=== PATIENT | male | born 1960 | race Caucasian/White ===

== ENCOUNTER → 2021-04-04 09:56 | Outpatient (CLI) | payer OTHER, SELFPAY ==
--- NOTE | ~2021-04-04 | XR_ITS ---
EXAMINATION: XR hip RT min 2V DATE: 04/04/2021 10:06 INDICATION: Right hip pain. TECHNIQUE: 2 views of right hip were obtained. COMPARISON: None. FINDINGS: Bone alignment is normal. No fracture. There is mild right hip osteoarthritis. IMPRESSION: 1. Mild right hip osteoarthritis. Reviewed, dictated and finalized at location A.
== END ==
PROVIDERS: PCP Emergency Medicine; Visit Provider Emergency Medicine
DX: M25.559 Pain in unspecified hip (principal); M16.11 Unilateral primary osteoarthritis, right hip
CPT/HCPCS: 73502

== ENCOUNTER 2021-12-29 08:23 | Emergency (ER) | payer OTHER, SELFPAY ==
[2021-12-29 08:32] VITALS: BP 130/91; PULSE 78; RESP 16; TEMP 37.1; O2SAT 98
--- NOTE | 2021-12-29 08:32 | ED.URI ---
HPI - URI/Sore Throat General Chief Complaint: Upper Respiratory Infection Stated Complaint: requests covid test Time Seen by Provider: 12/29/21 08:32 Source: patient Mode of arrival: ambulatory Limitations: no limitations History of Present Illness HPI Narrative: 61-year-old male presents with complaint of congestion, headaches, body aches, fatigue for 3 days. States that this morning he took a home COVID test but had difficulty swabbing himself so is concerned that it was an accurate. States that COVID test was negative. Has a event tonight and wants another rapid COVID test to make sure that he is not sick. Denies chest pain and shortness of breath. No nausea vomiting diarrhea. Patient is well-appearing. All systems reviewed and negative except as noted above. Related Data Allergies Allergy/AdvReac Type Severity Reaction Status Date / Time No Known Allergies Allergy Verified 04/04/21 09:32 Review of Systems Review of Systems: CONSTITUTIONAL: Denies fever, chills, or sweats. Reports fatigue. EYES: Denies visual changes, redness, or discharge. ENT: Reports rhinorrhea, congestion, sore throat. Denies otalgia. CARDIOVASCULAR: Denies chest pain, palpitations, or edema. RESPIRATORY: Denies cough or dyspnea. GASTROINTESTINAL: Denies abdominal pain, nausea, vomiting, or diarrhea. GENITOURINARY: Denies dysuria or hematuria. SKIN: Denies rash or itching. MUSCULOSKELETAL: Denies back pain, joint pain. Reports myalgia. NEUROLOGIC: Denies headache, numbness, or weakness. PSYCHIATRIC: Denies anxiety or depression. All other systems reviewed are negative, except as documented in HPI. [facility] Past Medical History Medical History (Updated 12/29/21 @ 08:58 by Hanh Ray NP) HTN (hypertension) Family History Family History Father Family history of cardiovascular disease, Onset Age: 50 Social History Social History Smoking status: Never smoker Alcohol intake: never Exam Narrative: GENERAL: This is a well-nourished, well-developed patient, in no apparent distress. HEAD: normocephalic, atraumatic. EYES: PERRL. Sclera clear/white. Vision is grossly intact. EARS: External ears normal, auditory canals clear and without drainage, TMs normal without perforation. Hearing grossly intact. NOSE: External nose normal with no obvious nasal discharge, nares without redness, no rhinorrhea. THROAT: Mucous membranes moist, mild erythema to posterior pharynx. NECK: Neck supple, non-tender without lymphadenopathy, masses or thyromegaly. CARDIOVASCULAR: Regular rate and rhythm without murmurs, gallops, or rubs. RESPIRATORY: Clear to auscultation. Breath sounds equal bilaterally. No wheezes, rales, or rhonchi. SKIN: warm, Dry, intact with no suspicious lesions or rash, good texture and turgor. NEURO: awake, alert, and oriented to person, place and time. There were no obvious focal neurologic abnormalities. EXTREMITIES: No joint tenderness, effusion, or edema noted. Course Course Level of Care: Express Care Visit Vital Signs Vital signs: Vital Signs Temperature 37.1 C 12/29/21 08:32 Pulse Rate 78 12/29/21 08:32 Respiratory Rate 16 12/29/21 08:32 Blood Pressure 130/91 H 12/29/21 08:32 Pulse Oximetry 98 12/29/21 08:32 Temperature 37.1 C 12/29/21 08:32 Pulse Rate 78 12/29/21 08:32 Respiratory Rate 16 12/29/21 08:32 Blood Pressure 130/91 H 12/29/21 08:32 Pulse Oximetry 98 12/29/21 08:32 Reviewed MDM - URI/Sore Throat MDM Narrative Medical decision making narrative: Patient is aware of diagnosis, understands and agrees to treatment plan. Anticipatory guidance given. Patient agrees to follow-up as directed and is aware of reasons to seek care at the emergency department. Portions of this record may have been created with voice recognition software Discharge P
== END 2021-12-29 09:05 | disposition home or self-care (01) ==
PROVIDERS: Emergency Provider Nurse Practitioner Family; PCP Emergency Medicine
DX: U07.1 COVID-19 (principal); I10 Essential (primary) hypertension
CPT/HCPCS: 87426; 99213; C9803; G0463

== ENCOUNTER 2022-06-27 10:21 | Day surgery (SDC) | payer OTHER, SELFPAY ==
[2022-06-17 11:35] VITALS: BMI 30.2
--- NOTE | 2022-06-26 14:25 | PM.HPGS ---
History of Present Illness History of Present Illness Consent: Risks, benefits, and alternatives have been discussed and questions answered. Patient agrees to proceed with procedure. Chief complaint: Neoplasm Screening and HX Colon Polyps Narrative: Richard Ortiz is a 61 year old male Who was referred for colon cancer screening. He had a colonoscopy with removal of 1 polyp about 6 years ago. Review of Systems Review of Systems: All systems reviewed & are unremarkable except as noted in HPI and below PMFSH Past Medical History Medical History HTN (hypertension) Hyperlipidemia TIA (transient ischemic attack) 22 years ago - no residual Family History Family History Father Family history of cardiovascular disease, Onset Age: 50 Social History Social History Smoking status: Never smoker Alcohol intake: current Drinks per week: 1 Substance use: never Substance use type: does not use Living arrangements: alone Spiritual care concerns: No Meds Home Medications and Allergies Home Medications Medication Instructions Recorded Confirmed Type amlodipine 10 mg tablet (Norvasc) 10 mg PO DAILY #90 tabs 05/08/22 06/27/22 Rx losartan 50 mg tablet 50 mg PO DAILY #90 tabs 05/08/22 06/27/22 Rx simvastatin 20 mg tablet 20 mg PO DAILY #90 tabs 05/28/22 06/27/22 Rx Allergies Allergy/AdvReac Type Severity Reaction Status Date / Time No Known Allergies Allergy Verified 06/27/22 11:12 Exam Const: General: alert Orientation/consciousness: patient oriented x3 Resp: Auscultation: clear to auscultation bilaterally Cardio: Rhythm: regular rhythm GI: GI Palp: Yes Soft to palpation and No Tenderness to palpation present (GI) Neuro: General: patient oriented x3 Assessment and Plan Assessment and plan (1) Colon cancer screening: Code(s): Z12.11 - Encounter for screening for malignant neoplasm of colon Status: Acute Assessment and Plan: Colonoscopy with possible biopsy or polypectomy or cautery or injection of substances.
--- NOTE | 2022-06-27 09:10 | P.PNAN_ITS ---
Anes - Initial Pre Proc Eval Procedure: Operation Date: 06/27/22 12:30 Proposed Procedures p Screening Colonoscopy - Jorge Luis Garcia MD Date/Time: 06/27/22 09:10 Surgeon: Jorge Luis Garcia MD Pre Op Diagnosis: Neoplasm Screening and HX Colon Polyps Patient Data Age: 61 Gender: M Height: 1.73 m Weight: 90 kg Allergies Allergy/AdvReac Type Severity Reaction Status Date / Time No Known Allergies Allergy Verified 06/27/22 11:12 Home Medications Medication Instructions Recorded Confirmed Type amlodipine 10 mg tablet (Norvasc) 10 mg PO DAILY #90 tabs 05/08/22 06/27/22 Rx losartan 50 mg tablet 50 mg PO DAILY #90 tabs 05/08/22 06/27/22 Rx simvastatin 20 mg tablet 20 mg PO DAILY #90 tabs 05/28/22 06/27/22 Rx Patient hx anesthesia problems: none Family hx anesthesia problems: none Results Review: All pre-operative results and documents have been reviewed as part of the pre- operative evaluation. [facility] Past Medical History Medical History (Updated 06/27/22 @ 11:19 by Troy Brock DO) HTN (hypertension) Hyperlipidemia TIA (transient ischemic attack) 22 years ago - no residual Family History Family History Father Family history of cardiovascular disease, Onset Age: 50 Social History Social History Smoking status: Never smoker Alcohol intake: current Drinks per week: 1 Substance use: never Substance use type: does not use Living arrangements: alone Spiritual care concerns: No Anes - Eval Final PreProcedure Day of Procedure 06/27/22 09:10 Patient weight: obese Heart: regular rate and rhythm Lungs: clear to auscultation Airway: Mallampati scale class II Neurological: alert and oriented Last oral intake: >/= 8 hours ASA classification: III Emergent: no Anesthetic plan: proceed Anesthesia type and monitoring: general GIVS and standard monitoring Results Review: All pre-operative results and documents have been reviewed as part of the pre- operative evaluation. Informed Consent: The patient's anesthetic plan and its attendant risks and benefits were discussed with the patient/family/POA. Questions were solicited and answers provided to the satisfaction of the patient/family/POA.
[2022-06-27 11:10] VITALS: BP 122/92; PULSE 76; RESP 20; TEMP 36.7; O2SAT 99
[2022-06-27] MEDS: LACTATED RINGERS 1,000 ML 150 ML IV CONT (11:36)
[2022-06-27 12:26] VITALS: BP 96/69; PULSE 65; RESP 16; O2SAT 98
[2022-06-27 12:36] VITALS: BP 98/77; PULSE 80; RESP 18; O2SAT 99
[2022-06-27 12:46] VITALS: BP 109/75; PULSE 63; RESP 20; O2SAT 100
--- NOTE | 2022-06-27 13:01 | WPDANESPN ---
Anes - Prog Note Post-Op Date/Time: 06/27/22 13:01 Cardiovascular status: normal Respiratory status: normal Airway patency: baseline Mental status: baseline Post-Op hydration status: normal Vital Signs: Last Vital Signs Temp 36.7 C 06/27/22 11:10 Pulse 63 06/27/22 12:46 Resp 20 06/27/22 12:46 BP 109/75 06/27/22 12:46 Pulse Ox 100 06/27/22 12:46 O2 Del Method Room Air 06/27/22 12:46 Pain Score (VAS): 0 I/O: Intake & Output 06/26/22 06/27/22 06/27/22 23:59 07:59 15:59 Intake Total 400 Balance 400 Post-procedural complaints: none Patient Feedback: Patient satisfied with anesthetic care. Other Findings: Patient vital signs back to baseline. Patient denies nausea and vomiting. Patient's pain under control. Patient OK for discharge.
== END 2022-06-27 12:50 | disposition home or self-care (01) ==
PROVIDERS: PCP Emergency Medicine; Visit Provider Internal Medicine Gastroenterology
PROC: 0DJD8ZZ Inspection of Lower Intestinal Tract, Via Natural or Artificial Opening Endoscopic (ICD-10-PCS; CPT 45378; principal; 2022-06-27 12:30)
DX: Z12.11 Encounter for screening for malignant neoplasm of colon (principal)
CPT/HCPCS: 45378

== ENCOUNTER 2023-05-28 08:34 | Emergency (ER) | payer OTHER, SELFPAY ==
[2023-05-28 08:54] VITALS: BP 144/97; PULSE 84; RESP 16; TEMP 36.9; O2SAT 97
--- NOTE | 2023-05-28 09:09 | ED.URI ---
HPI - URI/Sore Throat General Chief Complaint: Upper Respiratory Infection Stated Complaint: BODY ACHES/COVID EXPOSURE Time Seen by Provider: 05/28/23 09:09 Source: patient Mode of arrival: ambulatory Limitations: no limitations History of Present Illness HPI Narrative: 62-year-old male presents with complaint of nasal congestion, sore throat, fatigue, body aches, cough starting 2 days ago. Patient did COVID test this morning that was positive, came here for another test just to make sure. Denies chest pain and shortness of breath. Not taking any mbnc-vsx-ojdcusn and to treat symptoms. Afebrile. All systems reviewed and negative except as noted above. Related Data Home Medications Medication Instructions Recorded Confirmed aspirin 81 mg tablet,delayed 81 mg PO DAILY 05/19/23 05/28/23 release cholecalciferol (vitamin D3) 50 50 mcg PO DAILY 05/19/23 05/28/23 mcg (2,000 unit) capsule tefzeowlvmic-uqy-iphrf acid-vit 1 tablet PO DAILY 05/19/23 05/28/23 K-lycop 400 mcg-20 mcg-370 mcg tablet (Men's 50 Plus Multivitamin) Allergies Allergy/AdvReac Type Severity Reaction Status Date / Time No Known Allergies Allergy Verified 05/28/23 09:14 Review of Systems Review of Systems: CONSTITUTIONAL: Denies fever, chills, or sweats. EYES: Denies visual changes, redness, or discharge. ENT: Reports rhinorrhea, congestion, sore throat. Denies otalgia. CARDIOVASCULAR: Denies chest pain, palpitations, or edema. RESPIRATORY: Reports cough. Denies dyspnea. GASTROINTESTINAL: Denies abdominal pain, nausea, vomiting, or diarrhea. GENITOURINARY: Denies dysuria or hematuria. SKIN: Denies rash or itching. MUSCULOSKELETAL: Denies back pain, joint pain, or myalgia. NEUROLOGIC: Denies headache, numbness, or weakness. PSYCHIATRIC: Denies anxiety or depression. All other systems reviewed are negative, except as documented in HPI. [facility] Past Medical History Medical History HTN (hypertension) Hyperlipidemia TIA (transient ischemic attack) 22 years ago - no residual Family History Family History Father Family history of cardiovascular disease, Onset Age: 50 Social History Social History Smoking status: Never smoker Alcohol intake: current Drinks per week: 1 Substance use: never Substance use type: does not use Living arrangements: alone Spiritual care concerns: No Comments At time of signature, agree with nursing past medical, surgical, social and family history. There is no relevant family history pertinent to the presenting complaint. Exam Narrative: GENERAL: This is a well-nourished, well-developed patient, in no apparent distress. HEAD: normocephalic, atraumatic. EYES: PERRL. Sclera clear/white. Vision is grossly intact. EARS: External ears normal, auditory canals clear and without drainage, TMs normal without perforation. Hearing grossly intact. NOSE: External nose normal with clear nasal drainage, mild congestion. THROAT: Mucous membranes moist, posterior pharynx clear. NECK: Neck supple, non-tender without lymphadenopathy, masses or thyromegaly. CARDIOVASCULAR: Regular rate and rhythm without murmurs, gallops, or rubs. RESPIRATORY: Clear to auscultation. Breath sounds equal bilaterally. No wheezes, rales, or rhonchi. SKIN: warm, Dry, intact with no suspicious lesions or rash, good texture and turgor. NEURO: awake, alert, and oriented to person, place and time. There were no obvious focal neurologic abnormalities. EXTREMITIES: No joint tenderness, effusion, or edema noted. Course Course Level of Care: Express Care Visit Vital Signs Vital signs: Vital Signs Temperature 36.9 C 05/28/23 08:54 Pulse Rate 84 05/28/23 08:54 Respiratory Rate 16 05/28/23 08:54 Blood Pressure 144/97 H 1
== END 2023-05-28 09:17 | disposition home or self-care (01) ==
PROVIDERS: Emergency Provider Nurse Practitioner Family; PCP Emergency Medicine
DX: U07.1 COVID-19 (principal); I10 Essential (primary) hypertension; E78.5 Hyperlipidemia, unspecified; Z86.73 Personal history of transient ischemic attack (TIA), and cerebral infarction without residual deficits; Z79.82 Long term (current) use of aspirin
CPT/HCPCS: 87426; 99213; C9803; G0463

== ENCOUNTER 2023-10-19 16:00 | Emergency (ER) | payer OTHER, SELFPAY ==
--- NOTE | 2023-10-19 16:06 | ED.URI ---
HPI - URI/Sore Throat General Chief Complaint: Upper Respiratory Infection Stated Complaint: Sore Throat History of Present Illness HPI Narrative: 62-year-old male presented for complaint of sore throat x2 weeks. Endorses cough and mild nasal congestion. Denies shortness of breath, wheezing nausea vomiting, fevers or chills. Has not taken anything for symptoms. Related Data Home Medications Medication Instructions Recorded Confirmed aspirin 81 mg tablet,delayed 81 mg PO DAILY 05/19/23 10/19/23 release cholecalciferol (vitamin D3) 50 50 mcg PO DAILY 05/19/23 10/19/23 mcg (2,000 unit) capsule pmgapxjnbnuf-sga-wtbin acid-vit 1 tablet PO DAILY 05/19/23 10/19/23 K-lycop 400 mcg-20 mcg-370 mcg tablet (Men's 50 Plus Multivitamin) Allergies Allergy/AdvReac Type Severity Reaction Status Date / Time No Known Allergies Allergy Verified 10/19/23 16:07 Review of Systems Review of Systems: CONSTITUTIONAL: Denies body aches, fever, chills, or sweats. EYES: Denies visual changes, redness, or discharge. ENT: Reports rhinorrhea, congestion, sore throat, otalgia. CARDIOVASCULAR: Denies chest pain, palpitations, or edema. RESPIRATORY: Denies dyspnea. GASTROINTESTINAL: Denies abdominal pain, nausea, vomiting, or diarrhea. SKIN: Denies rash, itching, or wounds. MUSCULOSKELETAL: Denies back pain, joint pain, or myalgia. NEUROLOGIC: Denies headache PMFSH Past Medical History Medical History (Updated 10/19/23 @ 16:19 by Nisha Yadav APRN) HTN (hypertension) Hyperlipidemia TIA (transient ischemic attack) 22 years ago - no residual Surgical History Surgical History (Updated 10/19/23 @ 16:19 by Nisha Yadav APRN) History of tonsillectomy Family History Family History Father Family history of cardiovascular disease, Onset Age: 50 Social History Social History Smoking status: Never smoker Alcohol intake: current Drinks per week: 1 Substance use: never Substance use type: does not use Living arrangements: alone Spiritual care concerns: No Exam Narrative: GENERAL: well-appearing, no acute distress. EYES: conjunctivae clear ENT: Mucous membranes moist. TM pearly bell with normal light reflex bilaterally; no tragal tenderness. Oropharynx not erythematous without lesions. Tonsils absent; No drooling, no hoarseness, no trismus, uvula midline. No tripod positioning, hot potato voice, or soft palate swelling. NECK: Supple. No lymphadenopathy CHEST: Clear to auscultation, breath sounds equal. HEART: Regular rate and rhythm. No murmur heard. SKIN: Warm, dry, no rash. NEURO: Alert and oriented x3. Course Course Emergency Course: Patient is aware of diagnosis, understands and agrees to treatment plan. Anticipatory guidance given. Patient agrees to follow-up as directed and is aware of reasons to seek care at the emergency department. Portions of this record may have been created with voice recognition software Level of Care: Express Care Visit MDM - URI/Sore Throat MDM Narrative Medical decision making narrative: Discussed physical exam findings, Rx z-pack.Advise supportive treatments. Patient is appropriate for outpatient treatment and follow-up. Differential Diagnosis Differential diagnosis: Likely upper respiratory infection, viral infection and pharyngitis Discharge Plan Discharge Clinical Impression: Pharyngitis Patient Disposition: Home, Self-Care Condition: Stable Instructions: Antibiotic Form, Pharyngitis (ED) Additional Instructions: Recommend Flonase spray and Zyrtec (or Claritin/Elisa) over the counter Cough syrup may cause drowsiness; avoid driving or take it at night time. Tylenol 1000mg every 8 hours as needed for pain Symptomatic treatment includes: rest, fluids, and increase humidity of the air at home. Ramesh
[2023-10-19 16:08] VITALS: BP 130/85; PULSE 80; RESP 16; TEMP 36.5; O2SAT 98
== END 2023-10-19 16:25 | disposition home or self-care (01) ==
PROVIDERS: Emergency Provider Nurse Practitioner Family; PCP Emergency Medicine
DX: J02.9 Acute pharyngitis, unspecified (principal); I10 Essential (primary) hypertension; E78.5 Hyperlipidemia, unspecified; Z86.73 Personal history of transient ischemic attack (TIA), and cerebral infarction without residual deficits; Z79.82 Long term (current) use of aspirin
CPT/HCPCS: 99213; G0463